=== PATIENT | female | born 1985 | race Caucasian/White ===

== ENCOUNTER 2016-09-07 19:40 | Outpatient (CLI) | payer MEDICAID | END 2016-09-07 19:41 | disposition home or self-care (01) | DX: E55.9 Vitamin D deficiency, unspecified (principal); G43.909 Migraine, unspecified, not intractable, without status migrainosus; F32.9 Major depressive disorder, single episode, unspecified; Z68.31 Body mass index [BMI] 31.0-31.9, adult; R53.83 Other fatigue ==